=== PATIENT | male | born 1955 | race Caucasian/White ===

== ENCOUNTER → 2021-01-20 08:08 | Outpatient (BNVA) | payer BC, SELFPAY | PROVIDERS: PCP Nurse Practitioner Family; Visit Provider Nurse Practitioner Family ==

== ENCOUNTER → 2021-04-27 08:05 | Outpatient (BNVA) | payer BC, SELFPAY | PROVIDERS: PCP Internal Medicine; Visit Provider Nurse Practitioner Family ==